=== PATIENT | male | born 1965 | race Caucasian/White ===

== ENCOUNTER 2022-03-15 15:16 | Emergency (ER) | payer OTHER ==
[~2022-03-15 15:16] MED LIST: Iopamidol 300 61% 100 ML VIAL FS ONE
[2022-03-15] MEDS ORDERED: Lidocaine 1% w/Epinephrine 1:200K 30 ML VIAL ONE (16:16)
[2022-03-15] MEDS ORDERED: Boostrix 0.5 ML (Tdap) VIAL (>/=7 yrs of age) ONE (16:16)
[2022-03-15] MEDS ORDERED: Morphine 4 MG/ML VIAL ONE (17:07)
== END 2022-03-15 18:18 ==
LOC: CSHERS 15:16
DX: S02.609A Fracture of mandible, unspecified, initial encounter for closed fracture (principal); S01.81XA Laceration without foreign body of other part of head, initial encounter; S20.212A Contusion of left front wall of thorax, initial encounter; W55.12XA Struck by horse, initial encounter; Z23 Encounter for immunization
CPT/HCPCS: 12011; 70450; 70486; 71260; 72125; 90471; 90715; 93005; 96374; J2270; Q9967